=== PATIENT | male | born 1995 | race Two or more races ===

== ENCOUNTER 2018-11-17 01:54 | Inpatient (IN) | payer MEDICAID ==
[~2018-11-17] VITALS: Ht 170.2 cm; Wt 79.4 kg
[2018-11-17 04:08] VITALS: BP 127/81
--- NOTE | 2018-11-17 04:08 | NUR ---
MS RN OPENING NOTES: RECEIVED PT FROM ACHARYA. PT IS A/OX4. PT ON ROOM AIR AND IS TOLERATING WELL. NO SOB NOTED. PT COMPLAINING OF 5/10 AB PAIN ON THE LEFT SIDE SHARP PAIN. PT HAS IV ON R AC #20G AND IS PATENT AND INTACT. CURRENTLY H/L. BED KEPT IN LOW, LOCKED POSITION, AND SIDE RAILS X 2UP. AWAITING FOR ORDERS. WILL CONTINUE TO MONITOR PT.
[2018-11-17] MEDS ORDERED: MAGNESIUM HYDROXIDE 30 ML UDC PO PRN (04:30)
[2018-11-17] MEDS ORDERED: ACETAMINOPHEN 325 MG TABLET PO PRN (04:30)
[2018-11-17] MEDS ORDERED: ZOLPIDEM TARTRATE 5 MG TABLET PO PRN (04:30)
[2018-11-17] MEDS ORDERED: MAG HYDROX/AL HYDROX/SIMETH 30 ML UDC PO PRN (04:30)
[2018-11-17] MEDS ORDERED: HYDROCODONE/APAP 5/325MG 1 EACH TABLET PO PRN (04:30)
[2018-11-17] MEDS: IV NS 0.9% 1,000 ML IV PRN ×2 (04:59→16:12)
[2018-11-17] MEDS: ONDANSETRON HCL/PF 4 MG/2 ML VIAL IVP PRN ×3 (05:00→17:10)
[2018-11-17] MEDS: MORPHINE SULFATE INJ 2 MG/ML DISP.SYRIN IV PRN ×2 (05:03→09:28)
--- NOTE | 2018-11-17 05:03 | NUR ---
MS RN NOTES: PT COMPLAINING OF 8/10 SHARP LEFT ABDOMINAL PAIN. PT WAS ADMINISTERED ZOFRAN 4MG REQUESTED SINCE IT HELPS WITH TOLERATING THE MORPHINE. PT ALSO ADMINISTERED MORPHINE 2MG IV. WILL CONTINUE TO MONITOR.
--- NOTE | 2018-11-17 06:00 | NUR ---
MS RN NOTES: INFORMED ADVERTISING CLERK TRETIAK ABOUT GETTING ORDER FOR STAT CHEST X RAY FOR NG TUBE PLACEMENT. ALSO PER ADVERTISING CLERK TRETIAK, TO KEEP NG TUBE OPEN, DECOMPRESS STOMACH FROM AIR/FLUID.
[2018-11-17 06:41] LABS: BASOPHILS % (AUTO) 0.4 % (0.0-2.0); HEMATOCRIT 43 % (39-51); HEMOGLOBIN 14.5 g/dL (13.5-17.5); LYMPHOCYTES # (AUTO) 1.8 /CMM (0.8-4.8); LYMPHOCYTES % (AUTO) 19.6 % (20.0-44.0); MEAN CORPUSCULAR HGB CONC 34 g/dl (31.0-36.0); MEAN CORPUSCULAR VOLUME 88 fL (80-96); MONOCYTES # (AUTO) 0.6 /CMM (0.1-1.30); MONOCYTES % (AUTO) 6.9 % (2.0-12.0); NEUTROPHILS # (AUTO) 6.6 /CMM (1.8-8.9); NEUTROPHILS % (AUTO) 72.1 % (43.0-81.0); PLATELET COUNT (AUTO) 286 /CMM (150-450); RED BLOOD CELL COUNT(AUTO) 4.87 MIL/uL (4.5-6.0); WHITE BLOOD COUNT (AUTO) 9.2 K/uL (4.3-11.0)
[2018-11-17 06:43] LABS: ALBUMIN 3.4 g/dL (3.4-5.0); BILIRUBIN,TOTAL 0.6 mg/dL (0.2-1.0); CREATININE 0.8 mg/dL (0.6-1.3); MAGNESIUM 1.8 mg/dL (1.8-2.4); PHOSPHORUS 4.8 mg/dL (2.5-4.9); POTASSIUM 4.1 mmol/L (3.5-5.1); TOTAL PROTEIN, SERUM 7.4 g/dL (6.4-8.2)
--- NOTE | 2018-11-17 06:59 | NUR ---
MS RN CLOSING NOTES: ALL NEEDS WERE ATTENDED AND ANTICIPATED FOR. PT KEPT CLEAN, DRY, AND COMFORTABLE. PT ON ROOM AIR TOLERATING WELL. HOB ELEVATED. PT HAS NG TUBE IN R NARE. CHEST X RAY RESULTED AND CONFIRMS PLACEMENT. PER COUNTER TOP MAKER FESTUS, KEEP NG TUBE OPEN, DECOMPRESS STOMACH FROM AIR/FLUID. PT HAS IV ON R AC AND IS BEING INFUSED WITH IV NS AT 100ML/HR. BED KEPT IN LOW, LOCKED POSITION, AND SIDE RAILS X 2UP. WILL ENDORSE TO AM NURSE FOR BERNARDINO.
--- NOTE | 2018-11-17 07:10 | NUR ---
RN NOTES PATIENT A/OX4, BREATHING EVEN AND UNLABORED, NGT CLAMPED AT THIS TIME, DENIES PAIN OR DISCOMFORT AT THIS TIME, NEEDS ATTENDED, KEPT COMFORTABLE, CALL LIGHT WITHIN REACH, WILL CONTINUE TO MONITOR.
[2018-11-17 08:00] VITALS: BP 112/67
[2018-11-17] MEDS: PANTOPRAZOLE 40 MG VIAL IV SCH (08:17)
[2018-11-17] MEDS ORDERED: HYDR-4384 PO (09:21)
[2018-11-17] MEDS ORDERED: HYDROMORPHONE 1 MG/1 ML DISP.SYRIN IV PRN (12:30)
[2018-11-17] MEDS ORDERED: HYDROMORPHONE INJ 0.5 MG/0.5 ML SYRINGE IV PRN (12:30)
[2018-11-17] MEDS ORDERED: DIATR MEGLU/DIATRIZOATE SODIUM 120 ML BOTTLE (GASTROGRAPHIN) ONE (13:09)
[2018-11-17] MEDS ORDERED: BARIUM SULFATE SUSP 450 ML BOTTLE PO ONE (13:09)
[2018-11-17] MEDS ORDERED: BARIUM SULFATE 98% 135 ML SUSP.RECON PO ONE (13:13)
--- NOTE | 2018-11-17 14:00 | NUR ---
RN NOTES CONTRAST GIVEN VIA NGT FOR SMALL BOWEL XRAY SERIES.
--- NOTE | 2018-11-17 14:30 | NUR ---
RN NOTES PATIENT VOMITED X2 AFTER THE CONTRAST. XRAY TAKEN.
--- NOTE | 2018-11-17 15:15 | NUR ---
RN NOTES PATIENT STILL C/O SEVERE PAIN, DR. MICHEL BELL MADE AWARE AND RECEIVED ORDER FOR DILAUDID 0.5MG Q2HRS PRN, AND TO START LOW INTERMITTENT SUCTION AFTER SMALL BOWEL FOLLOW THROUGH. ORDER NOTED AND CARRIED OUT.
--- NOTE | 2018-11-17 15:20 | NUR ---
RN NOTES SUCTION HELD AT THIS TIME. PATIENT STILL HAS ONGOING SMALL BOWEL FOLLOW THROUGH. WAITING FOR RADIOLOGIST TO COMPLETE XRAYS. PATIENT IN BED, ASLEEP AT THIS TIME, BUT EASILY AWAKEN. NGT CLAMPED AT THIS TIME. NEEDS ATTENDED AND MET, CALL LIGHT WITHIN REACH, WILL ENDORSE TO WELT STITCHER FOR BERNARDINO. Addendum: 11/17/18 at 1909 by IRENE VEGA RN CORRECTION: WILL CONTINUE TO MONITOR.
[2018-11-17] MEDS: HYDROMORPHONE INJ 0.5 MG/0.5 ML SYRINGE IV PRN ×3 (15:23→19:35)
[2018-11-17 16:00] VITALS: BP 123/73
--- NOTE | 2018-11-17 19:09 | NUR ---
RN NOTES NEEDS ATTENDED, SMALL BOWEL FOLLOW THROUGH IS STILL GOING. PATIENT IN NO PAIN AT THIS TIME. HOB ELEVATED, IVF INFUSING AND TOLERATING WELL, CALL LIGHT WITHIN REACH, WILL ENDORSE TO SCRAP SAWYER FOR BERNARDINO.
--- NOTE | 2018-11-17 19:40 | NUR ---
MS2/RN RECEIVE PATIENT AWAKE, ALERT, ORIENTED, WITH C/O ABDOMINAL PAIN 10/10, MEDICATED WITH DILAUDID IV ORDERED. WILL MONITOR.
[2018-11-17 20:00] VITALS: BP 138/79
[2018-11-18 07:00] LABS: BASOPHILS % (AUTO) 0.1 % (0.0-2.0); EOSINOPHILS % (AUTO) 0.4 % (0.0-6.0); HEMATOCRIT 40 % (39-51); HEMOGLOBIN 13.5 g/dL (13.5-17.5); LYMPHOCYTES # (AUTO) 1.2 /CMM (0.8-4.8); LYMPHOCYTES % (AUTO) 12.8 % (20.0-44.0); MEAN CORPUSCULAR HGB CONC 34 g/dl (31.0-36.0); MEAN CORPUSCULAR VOLUME 88 fL (80-96); MONOCYTES % (AUTO) 10.4 % (2.0-12.0); NEUTROPHILS # (AUTO) 7.1 /CMM (1.8-8.9); NEUTROPHILS % (AUTO) 76.3 % (43.0-81.0); PLATELET COUNT (AUTO) 256 /CMM (150-450); RED BLOOD CELL COUNT(AUTO) 4.54 MIL/uL (4.5-6.0); WHITE BLOOD COUNT (AUTO) 9.3 K/uL (4.3-11.0)
[2018-11-18 07:01] LABS: CALCIUM, SERUM 8.6 mg/dL (8.5-10.1); POTASSIUM 4.1 mmol/L (3.5-5.1)
--- NOTE | 2018-11-18 07:10 | NUR ---
RN NOTES PATIENT STATES HE FEELS BETTER, PAIN IS BETTER. NGT STILL CLAMPED, STILL WAITING FOR THE LAST IMAGE FOR A SMALL BOWEL FOLLOW THROUGH. PATIENT KEPT NPO AT THIS TIME, NO VOMITING EPISODE AT THIS TIME. NEEDS ATTENDED AND MET, CALL LIGHT WITHIN REACH, WILL CONTINUE TO MONITOR.
--- NOTE | 2018-11-18 07:33 | NUR ---
MS2/RN PATIENT IS AWAKE, COMFORTABLE, NO C/O PAIN, NO DISTRESS NOTED, NGT IN PLACE AND CLAMPED. ALL NEEDS ATTENDED AT THIS TIME, WILL CONTINUE TO MONITOR.
[2018-11-18 08:00] VITALS: BP 111/57
[2018-11-18] MEDS: PANTOPRAZOLE 40 MG VIAL IV SCH (08:35)
--- NOTE | 2018-11-18 10:58 | NUR ---
RN NOTES READ XRAY BOWEL SERIES TO DR. GARCIA, AND RELAYED WHAT PATIENT STATED THIS MORNING THAT HE FELT BETTER AND HE HAD A BM WITH "NORMAL" BROWN COLOR. PAIN HAS LESSENED. RECEIVED ORDER FROM DR. GARCIA TO REMOVE NGT AND TO START PATIENT ON CLEAR LIQUID DIET. ORDER NOTED AND CARRIED OUT. NEEDS ATTENDED, CALL LIGHT WITHIN REACH, WILL CONTINUE TO MONITOR.
--- NOTE | 2018-11-18 11:30 | NUR ---
RN NOTES REMOVED NGT. PATIENT TOLERATED IT WELL. NO N/V AT THIS TIME.
[2018-11-18] MEDS: IV NS 0.9% 1,000 ML IV PRN (14:41)
[2018-11-18 16:00] VITALS: BP 111/61
--- NOTE | 2018-11-18 18:54 | NUR ---
RN NOTES PATIENT TOLERATING CLEAR LIQUID DIET, NO EPISODE OF VOMITING AT THIS SHIFT, DENIES ABDOMINAL PAIN, PATIENT RESTING AT THIS TIME, ALL NEEDS ATTENDED AND MET, CALL LIGHT WITHIN REACH, WILL ENDORSE TO ENVIRONMENTAL SERVICES MANAGER FOR BERNARDINO.
--- NOTE | 2018-11-18 19:00 | NUR ---
RN NOTES RECEIVED PATIENT IN BED, AWAKE, ALERT ON ROOM AIR AND TOLERATED WELL. PATIENT DENIES PAIN, NAUSEA AND VOMITING AT THIS TIME. ABDOMEN SOFT AND NON TENDER. PLAN OF CARE DISCUSSED WITH THE PATIENT AND VERBALIZED UNDERSTANDING. KEPT COMFORTABLE AND ATTENDED, CALL LIGHT WITHIN REACH. WILL CONTINUE TO MONITOR PATIENT.
[2018-11-18 20:00] VITALS: BP 123/67
[2018-11-18 22:00] VITALS: BP 123/67
[2018-11-19] MEDS: IV NS 0.9% 1,000 ML IV PRN ×2 (00:49→14:23)
--- NOTE | 2018-11-19 07:00 | NUR ---
MS RN NOTES PATIENT IN BED ALERT ORIENTED X 3. NO ACUTE DISTRESS NOTED. BREATHING UNLABORED. NO SOB NOTED. DENIED ANY PAIN AT THIS TIME. IV ACCESS PATENT AND INTACT, NO REDNESS OR SWELLING NOTED. SAFETY MEASURES IN PLACE. CALL LIGHT WITHIN REACH. WILL CONTINUE TO MONITOR ACCORDINGLY.
--- NOTE | 2018-11-19 07:17 | NUR ---
RN NOTES PATIENT STABLE OVERNIGHT, VITAL SIGNS STABLE, AFEBRILE. CURRENT DIET TOLERATED WELL. DENIES PAIN, NAUSEA AND VOMITING. VOIDING WELL. PLS INFORM MD IN AM ABOUT THE RESULT OF CT ABDOMEN PELVIS FROM [place] THAT SUGGEST ACUTE APPENDICITIS, CASTILLO REBAR BENDER AWARE. ALL NEEDS ATTENDED. ENDORSED TO MORNING RN FOR CONTINUITY OF CARE.
[2018-11-19 08:00] VITALS: BP 99/57
--- NOTE | 2018-11-19 08:50 | NUR ---
MS RN NOTES ACCIDENTALLY DROPPED PROTONIX IV VIAL, PROPERLY DISPOSED BROKEN VIAL WITNESSED BY ANOTHER RN NENO. TOOK ANOTHER ONE FROM THE [facility] CELL, PHARMACIST LATOYA MADE AWARE.
[2018-11-19] MEDS: PANTOPRAZOLE 40 MG VIAL IV SCH (08:59)
--- NOTE | 2018-11-19 11:47 | NUR ---
MS RN NOTES SEEN AND EVALUATED BY DR MICHEL BELL, AWARE OF CT OF ABDOMEN AND PELVIS RESULT FROM [place]. WITH NEW ORDERS MADE, AND DIET CHANGED TO REGULAR. NOTED AND CARRIED OUT.
[2018-11-19 12:11] LABS: BASOPHILS % (AUTO) 0.3 % (0.0-2.0); HEMATOCRIT 40 % (39-51); HEMOGLOBIN 13.5 g/dL (13.5-17.5); LYMPHOCYTES # (AUTO) 1.2 /CMM (0.8-4.8); LYMPHOCYTES % (AUTO) 18.9 % (20.0-44.0); MEAN CORPUSCULAR HGB CONC 34 g/dl (31.0-36.0); MEAN CORPUSCULAR VOLUME 88 fL (80-96); MONOCYTES # (AUTO) 0.4 /CMM (0.1-1.30); MONOCYTES % (AUTO) 6.7 % (2.0-12.0); NEUTROPHILS # (AUTO) 4.7 /CMM (1.8-8.9); NEUTROPHILS % (AUTO) 73.1 % (43.0-81.0); PLATELET COUNT (AUTO) 265 /CMM (150-450); RED BLOOD CELL COUNT(AUTO) 4.52 MIL/uL (4.5-6.0); WHITE BLOOD COUNT (AUTO) 6.5 K/uL (4.3-11.0)
[2018-11-19 12:22] LABS: ALBUMIN 3.3 g/dL (3.4-5.0); BILIRUBIN,TOTAL 0.5 mg/dL (0.2-1.0); CALCIUM, SERUM 8.9 mg/dL (8.5-10.1); CREATININE 0.9 mg/dL (0.6-1.3); POTASSIUM 3.5 mmol/L (3.5-5.1); TOTAL PROTEIN, SERUM 7.2 g/dL (6.4-8.2)
[2018-11-19 16:00] VITALS: BP 102/62
--- NOTE | 2018-11-19 18:40 | NUR ---
MS FLOORING GRADER NOTES PATIENT DISCHARGE HOME WITH STABLE VITAL SIGNS. DENIED ANY PAIN. NO ACUTE DISTRESS NOTED. BREATHING UNLABORED. DISCHARGE INSTRUCTIONS GIVEN TO THE PATIENT INCLUDING FOLLOW UP WITH PRIMARY DOCTOR IN 2-3 DAYS, VERBALIZED UNDERSTANDING. IV ACCESS REMOVED, NO BLEEDING, NO REDNESS, NO SWELLING NOTED. ALL BELONGINGS ACCOUNTED FOR. NEEDS ATTENDED AND ANTICIPATED. DUE MEDICATIONS GIVEN, NO ASE NOTED. ASSISTED TO THE LOBBY , PICKED UP VIA PRIVATE CAR IN STABLE CONDITION.
== END 2018-11-19 18:35 | disposition home or self-care (01) | DRG 247 ==
LOC: MEDSG2 03:54
PROVIDERS: ADMIT Nurse Practitioner Acute Care; ATTEND Nurse Practitioner Acute Care
DX: K56.609 Unspecified intestinal obstruction, unspecified as to partial versus complete obstruction (principal); R11.0 Nausea
CPT/HCPCS: 36415; 71045-TC; 74250-TC; 80048-TC; 80053-TC; 83735-TC; 84100-TC; 85025-TC; 85610-TC; 87081-TC; C9113; G0378; J2270; J2405; J7030; Q9963